=== PATIENT | male | born 1990 | race Hispanic/Latino ===

== ENCOUNTER 2023-02-14 09:39 | Day surgery (SDC) | payer BC ==
[2023-02-14] MEDS ORDERED: PROPOFOL 200 MG/20 ML VIAL ONE (12:31)
[2023-02-14] MEDS ORDERED: Dexamethasone 20 MG/5 ML VIAL ONE (12:31)
[2023-02-14] MEDS ORDERED: Lidocaine 1% PF 5 ML VIAL ONE (12:31)
[2023-02-14] MEDS ORDERED: Metoclopramide HCl 10 MG/2 ML VIAL ONE (12:31)
[2023-02-14] MEDS ORDERED: Ketorolac Tromethamine 30 MG/ML VIAL ONE (12:31)
[2023-02-14] MEDS ORDERED: Ondansetron PF 4 MG/2 ML Vial ONE (12:31)
[2023-02-14] MEDS ORDERED: Rocuronium Bromide 10 MG/ML (10ML VIAL) ONE (12:31)
[2023-02-14] MEDS ORDERED: cefOXitin 2 GM VIAL ONE (12:56)
[2023-02-14] MEDS ORDERED: Sodium Chloride 0.9% 100 ML ONE (12:56)
[2023-02-14] MEDS ORDERED: Bupivacaine/Epinephrine 0.25% 30 ML VIAL ONE (12:57)
[2023-02-14] MEDS ORDERED: fentaNYL PF 100 MCG/2 ML SYRINGE ONE (13:05)
[2023-02-14] MEDS ORDERED: HYDROmorphone 2 MG/ML VIAL ONE (13:06)
[2023-02-14] MEDS ORDERED: fentaNYL 50 mcg/mL 1 mL Vial ONE (14:25)
[2023-02-14] MEDS ORDERED: HYDROcodone/Acetaminophen 5/325 mg Tablet ONE (15:05)
== END 2023-02-14 15:51 | disposition home or self-care (01) ==
LOC: SDC 09:39
PROVIDERS: ATTEND Surgery
PROC: 0DTJ4ZZ Resection of Appendix, Percutaneous Endoscopic Approach (ICD-10-PCS; principal; 2023-02-14)
DX: K35.80 Unspecified acute appendicitis (principal)
CPT/HCPCS: 88304; A4649; C1776; J0694; J1100; J1170; J1885; J2405; J2704; J2765; J3010; J3490